=== PATIENT | female | born 1970 | race Caucasian/White ===

== ENCOUNTER 2020-03-31 08:56 | Outpatient (CLI) | payer OTHER, SELFPAY ==
--- NOTE | ~2020-03-31 | US_ITS ---
EXAMINATION: US abdomen complete DATE: 03/31/2020 11:00 INDICATION: Epigastric abdominal pain. TECHNIQUE: Multiple grayscale and Doppler ultrasound images of the abdomen were obtained. COMPARISON: CT abdomen and pelvis 05/04/2018 FINDINGS: The visualized portions of the head, body, and tail of the pancreas are normal. Inferior ve na cava is normal. Abdominal aorta is normal in caliber. The liver is normal without lesion. There is normal flow in main portal vein. The gallbladder is normal in size. No gallstones or gallbladder wal l thickening. There was no sonographic Marsh sign. The common duct is normal and measures 3 mm. The kidneys are normal in size. The spleen is normal in size. IMPRESSION: 1. Normal complete abdomen ultrasound. Reviewed, dictated and finalized at location A.
== END 2020-03-31 08:57 | disposition home or self-care (01) ==
PROVIDERS: PCP Family Medicine; Visit Provider Family Medicine
DX: R10.13 Epigastric pain (principal)
CPT/HCPCS: 76700

== ENCOUNTER 2021-03-14 11:26 | Emergency (ER) | payer OTHER, SELFPAY ==
[2021-03-14 11:34] VITALS: BP 108/77; PULSE 100; RESP 16; TEMP 36.7; O2SAT 99
--- NOTE | 2021-03-14 11:50 | ED.URI ---
HPI - URI/Sore Throat General Chief Complaint: Upper Respiratory Infection Stated Complaint: Cough/sore throat /ear pain Time Seen by Provider: 03/14/21 11:50 Source: patient, RN notes reviewed and old records reviewed Mode of arrival: ambulatory Limitations: no limitations History of Present Illness HPI Narrative: 50-year-old female presents to [facility] care with complaints of 9 day history of cough, nasal congestion with drainage and loss of taste. Patient is an over the road commercial truck driver and her significant other and driving partner is also ill with similar symptoms. Patient has not had COVID or had immunizations for COVID of flu. Patient does have a history of asthma and has noted some dyspnea with exertion and has not used her rescue inhaler for her symptoms. Patient states that she has been taking sinus allergy pill and has taken some Tylenol and Ibuprofen.Patient states that she has had intermittent fevers, chills and sweats and some sore throat discomfort also. MD elicited complaint: cough, sore throat and other (ear pain) Pertinent past history: pneumonia, sinusitis, asthma, seasonal allergies and other (bronchitis) Description of mucous: yellow Able to tolerate fluids by mouth: Yes Context: sick contacts Treatments prior to arrival: acetaminophen, ibuprofen and other (allergy med and flovent) Related Data Home Medications Medication Instructions Recorded Confirmed fluticasone propionate [Flovent 1 mcg INHALATION BID 03/14/21 03/14/21 HFA] lisinopril-hydrochlorothiazide 1 tablet PO DAILY 03/14/21 03/14/21 pantoprazole 1 mg PO BID 03/14/21 03/14/21 Allergies Allergy/AdvReac Type Severity Reaction Status Date / Time propoxyphene Allergy Mild RASH Verified 03/14/21 11:48 Review of Systems Review of Systems: Narrative: CONSTITUTIONAL positive for fever, chills, or sweats. EYES: Denies visual changes, redness, or discharge. ENT: Positive rhinorrhea, congestion, sore throat, no otalgia. CARDIOVASCULAR: Denies chest pain, palpitations, or edema. RESPIRATORY: Positive cough or dyspnea. GASTROINTESTINAL: Denies abdominal pain, nausea, vomiting, or diarrhea. GENITOURINARY: Denies dysuria or hematuria. SKIN: Denies rash or itching. MUSCULOSKELETAL: Denies back pain, joint pain, or myalgia. NEUROLOGIC: Denies headache, numbness, or weakness. PSYCHIATRIC: positive for anxiety or depression. All systems reviewed & are unremarkable except as noted in HPI and below PMFSH Past Medical History Medical History (Updated 03/17/21 @ 08:11 by Rosalba Walker NP) Anxiety and depression Asthma Bleeding ulcer Bronchitis GERD (gastroesophageal reflux disease) Hypertension Strabismic amblyopia, bilateral eye surgery X5 bilaterally Surgical History Surgical History (Updated 03/14/21 @ 11:58 by Rosalba Walker NP) H/O tubal ligation Previous section Family History Family History (Updated 03/17/21 @ 08:05 by Rosalba Walker NP) Other Heart disease Hypertension Social History Social History (Updated 03/16/21 @ 20:15 by Rosalba Walker NP) Smoking status: Current every day smoker Tobacco type: cigarettes Alcohol intake: current Alcohol use details: social Substance use: never Living arrangements: with family Gender identity (if verbalized by the patient): Female Comments At time of signature, agree with nursing past medical, surgical, social and family history. There is no relevant family history pertinent to the presenting complaint Exam Narrative: Exam Narrative: GENERAL: Well-appearing, well-nourished, and in no acute distress. HEAD: Normocephalic, atraumatic. EYES: PERRLA and EOMI. ENT: Nares clear, yellow rhinorrhea or epistaxis. Mucous membranes moist. TM's normal with dull light reflex, throat red with no lesions or exudates, no tonsil enlargement post nasal drainage present. NECK: Supple. no lymphadenopathy CHEST: Scattered wheezing auscultation. No respiratory distre
[2021-03-16 15:56] LABS: SARS-CoV-2 RNA PCR Negative
== END 2021-03-14 12:41 | disposition home or self-care (01) ==
PROVIDERS: Emergency Provider Registered Nurse; PCP Family Medicine
DX: J40 Bronchitis, not specified as acute or chronic (principal); Z20.822 Contact with and (suspected) exposure to COVID-19; K21.9 Gastro-esophageal reflux disease without esophagitis; I10 Essential (primary) hypertension
CPT/HCPCS: 87081; 87426; 87880; 99213; C9803; G0463; U0003; U0005